=== PATIENT | female | born 1945 | race Caucasian/White ===

== ENCOUNTER 2025-01-01 13:00 | Outpatient (RCR) | payer MEDICARE, SELFPAY ==
--- NOTE | 2024-12-13 11:42 | HP.OTEVAL_ITS ---
Patient's Visit Information Visit Information Visit Information: LINCOLN STEVE is a 79 year old F, referred to Occupational Therapy by DESTINY Matthews, with a diagnosis of LE lymphedema. Date of Evaluation: 12/12/24 Occupational Therapist: Chela Coffman, BLAYNE/Tello, CHT Subjective Subjective: This 79 year old female was seen for OT eval with dx of lymphedema. Pt states she has struggled with swelling in LE. pt states she is on a water pill but she doesn't help with the swelling. Pt states for years she has noticed in the morning her legs are staying the same size. pt states she has tried to elevate her legs but it does not help. pt states she does not think they have compression socks big enough for her legs. pt states she has had swelling since she was about 66 years old. pt states legs are heavy and difficulty getting legs in and out of the car. pt has been through therapy for LE lymphedema- she has used leggings has a compression pump but difficulty to get on so she has not been using them. Pt is not sure what she can do to help her legs get smaller. Lymphedema (Circumferential Measure) Mid-foot: right 21cm left 21cm Ankle: right 46cm left 44cm Lower calf: right 52 left 48 Largest calf: 56 left 65 Below knee: 58 left 60 Above knee: right 70cm left 72cm Mid-thigh: right 77cm left 76 Lower Limb Functional Index Lower Extremity Functional Score: 17 Goals Goal: Patient will demonstrate a 20% reduction in edema by discharge: Yes Goal: Patient will demonstrate adequate knowledge of self-bandaging by the end of the first week.: Yes Goal: Patient will demonstrate adequate knowledge of self-massage by the end of the second week.: Yes Goal: Patient will demonstrate adequate knowledge of skin care and precautions by the end of the first week.: Yes Goal: Patient will demonstrate adequate knowledge of therapeutic exercises by discharge.: Yes Goal: Patient will select an appropriate compression garment and demonstrate adequate knowledge of correct donning technique, care and wearing schedule by discharge.: Yes Goal: Patient will voice understanding of need to replace compression garment every four to six months by discharge.: Yes Rehabilitation General Assessment: pt demo with symmetrical LE edema - legs are soft and supple with pitting edema. Legs present with consistent symptoms of stage III lymphedema and questioning stage III lipedema. Pt would benefit from skilled OT services to ed. pt on life long mtg. of her lymphedema. Therapist ed. pt that she has good tools to assist in circulation of fluid. Therapist ed. pt on compression wraps would be beneficial to assist pt in mtg. her dx. Pt states she feels this is not an option for her as they will be difficult for pt to do herself. Therapist ed. pt to initiate using her compression leggings again, and to start using her compression pump for 1 hour 2 x a day. pt receptive and demo understanding and agreed to POC. Rehabilitation Potential: Questionable Anticipated Interventions Anticipated Interventions: Education re assistive Equipment, Education re Diagnosis, Education re Life-long lymphedema Management, Education re Self- Bandaging Techniques, Education re Skin Care and Precautions, Education re Correct Donning Tech,Care&Wearing Sched Comp Garments, Caregiver Training and Home Program Visit Plan TEXT: Thank you for the opportunity to evaluate your patient. For Medicare and Medicare HMO plans, please review the plan of care and approve it. It will need to be FAXED BACK to us at [phone] for Medicare purposes. Please let me know if there are questions or concerns regarding this plan of care. Physician Signature: Date:
== END 2025-01-01 19:00 | disposition home or self-care (01) ==
LOC: OT 13:00
PROVIDERS: PCP Physician Assistant; Referring Provider Physician Assistant; Visit Provider Physician Assistant
DX: I89.0 Lymphedema, not elsewhere classified (principal)
CPT/HCPCS: 97166; 97530